=== PATIENT | female | born 1970 | race African-American/Black ===

== ENCOUNTER 2022-12-18 13:08 | Emergency (ER) | payer OTHER ==
[2022-12-18] MEDS ORDERED: ACETAMINOPHEN 500 MG TABLET (FP) PO ONE (14:07)
[2022-12-18] MEDS ORDERED: ACETAMINOPHEN 500 MG TABLET (FP) ONE (14:25)
[2022-12-18 14:35] VITALS: RESP 18; BMI 30.1
[2022-12-18 19:00] VITALS: BP 131/80; PULSE 86; TEMP 98.9
== END 2022-12-18 19:00 | disposition home or self-care (01) ==
LOC: JER 13:08
DX: M25.562 Pain in left knee (principal); W01.0XXA Fall on same level from slipping, tripping and stumbling without subsequent striking against object, initial encounter; W22.8XXA Striking against or struck by other objects, initial encounter; Y92.219 Unspecified school as the place of occurrence of the external cause; Y99.0 Civilian activity done for income or pay
CPT/HCPCS: 73564-TC-LT-FY; 73700-TC-RT; 99284-25

== ENCOUNTER 2023-09-11 05:58 | Day surgery (SDC) | payer OTHER ==
[2023-09-08 11:27] VITALS: BMI 32.5
[2023-09-11] MEDS ORDERED: oxyCODONE HCL 5 MG TABLET PO PRN (07:10)
[2023-09-11] MEDS ORDERED: ONDANSETRON 4 MG/2 ML VIAL IVPUSH PRN (07:10)
[2023-09-11] MEDS ORDERED: LACTATED RINGERS SOLUTION 1,000 ML IV SCH (07:15)
[2023-09-11] MEDS ORDERED: EPINEPHrine 1:1,000 1,000 MCG/ML ML ONE (07:26)
[2023-09-11] MEDS ORDERED: PROPOFOL 40 ML ONE (07:26)
[2023-09-11] MEDS ORDERED: MIDAZOLAM HCL 2 MG/2 ML SINGLE DOSE VIAL ONE (07:26)
[2023-09-11] MEDS ORDERED: BUPIVACAINE HCL/PF 0.25% (2.5MG/ML) 10 ML VIAL ONE (07:26)
[2023-09-11] MEDS: BUPIVACAINE HCL/PF 0.25% (2.5MG/ML) 10 ML VIAL IJ ONE (08:24)
[2023-09-11] MEDS ORDERED: FENTANYL CITRATE/PF 50 MCG/ML VIAL ONE ×4 (09:23→10:02)
[2023-09-11] MEDS ORDERED: ACETAMINOPHEN INJECTION 100 ML IVPB ONE (09:49)
[2023-09-11] MEDS: ACETAMINOPHEN 1000 MG/100 ML BAG IVPB ONE (09:57)
[2023-09-11] MEDS: oxyCODONE HCL 5 MG TABLET ONE (11:19)
[2023-09-11 11:41] VITALS: RESP 16; TEMP 97.6
[2023-09-11] MEDS: ONDANSETRON *ODT* 4 MG TABLET ONE (12:00)
[2023-09-11 16:09] VITALS: BP 107/56; PULSE 88
== END 2023-09-11 12:15 | disposition home or self-care (01) ==
LOC: FASU 05:58
PROVIDERS: ATTEND Orthopaedic Surgery Sports Medicine
PROC: BQ18ZZZ Fluoroscopy of Left Knee (ICD-10-PCS; 2023-09-11)
PROC: 0SQD4ZZ Repair Left Knee Joint, Percutaneous Endoscopic Approach (ICD-10-PCS; principal; 2023-09-11 08:25)
DX: S83.232A Complex tear of medial meniscus, current injury, left knee, initial encounter (principal); S83.512A Sprain of anterior cruciate ligament of left knee, initial encounter; X58.XXXA Exposure to other specified factors, initial encounter; Y93.9 Activity, unspecified; Y92.9 Unspecified place or not applicable
CPT/HCPCS: 73560-TC-LT-FY; 94760; C1713; J0131; Q0162